=== PATIENT | female | born 1965 | race Caucasian/White ===

== ENCOUNTER 2022-10-16 | Outpatient (REF) | payer OTHER, SELFPAY ==
[2022-10-17 12:06] LABS: Influenza A PCR NEGATIVE (Negative); Influenza B PCR NEGATIVE (Negative); Resp Syncy Virus RNA Qual PCR NEGATIVE (Negative); SARS COV2 PCR INHOUSE NEGATIVE (Negative)
== END 2022-10-16 00:01 | disposition home or self-care (01) ==
LOC: HO.LNP
PROVIDERS: Visit Provider Nurse Practitioner Family
DX: Z20.822 Contact with and (suspected) exposure to COVID-19 (principal); R05.9 Cough, unspecified
CPT/HCPCS: 0241U

== ENCOUNTER 2022-10-17 11:22 | Outpatient (REF) | payer OTHER, SELFPAY | END 2022-10-17 11:23 | disposition home or self-care (01) | LOC: HO.LNP 11:22 | PROVIDERS: Visit Provider Nurse Practitioner Family | DX: Z13.89 Encounter for screening for other disorder (principal) ==

== ENCOUNTER 2023-03-29 14:33 | Outpatient (REF) | payer OTHER, SELFPAY ==
--- NOTE | ~2023-03-29 | CT_ITS ---
EXAMINATION: LUNG CANCER SCREENING CT CHEST WITHOUT CONTRAST CLINICAL INFORMATION: Current smoker with 40 pack year history COMPARISON: None TECHNIQUE: Multidetector volumetric CT imaging of the chest was obtained noncontrast using low dose screening CT technique. Axial thin section 0.625 mm reformations in soft tissue and lung windows were obtained. Sagittal and coronal reformations were obtained. Axial MIP images were also created and reviewed. This CT examination was performed using dose optimization techniques as appropriate, variously including the following: *Automated exposure control *Adjustment of mA and/or kV according to patient size (this includes techniques or standardized protocols for targeted exams where dose is matched to indication/reason for exam; i.e. extremities or head) *Use of iterative reconstruction technique TOTAL EXAM DLP: 36.27 mGy-cm FINDINGS: PULMONARY NODULES (see smith images): No suspicious pulmonary nodules. LUNGS / PLEURA: Minimal emphysema. Diffuse mild bronchial wall thickening without bronchiectasis. There are couple tiny focal pleural-parenchymal scars at the lateral right lung apex. No pleural effusion or pneumothorax. MEDIASTINUM / JABIER: Heart normal in size without pericardial effusion. Great vessels normal caliber. No lymphadenopathy. Coronary calcifications absent. Imaged thyroid gland unremarkable. CHEST WALL / AXILLA: Unremarkable. UPPER ABDOMEN: Included portions grossly unremarkable allowing for limitations in technique. OSSEOUS STRUCTURES: No acute or suspicious osseous abnormalities. Healed right lateral seventh and eighth rib fractures. Mild S-shaped thoracolumbar scoliosis. CT/CT lung screening IMPRESSION: * No evidence of pulmonary malignancy. * There are no pulmonary nodules that meet criteria for short interval follow-up at this time. ASSESSMENT: Lung RADS category: 1. Negative. No nodules or definitely benign nodules. Continue annual screening with low-dose CT in 12 months. Probability of malignancy less than 1%. RECOMMENDATION: Follow up low dose CT chest in 1 year.
== END 2023-03-29 14:34 | disposition home or self-care (01) ==
LOC: HO.CT 14:33
PROVIDERS: PCP Internal Medicine; Visit Provider Physician Assistant Medical
DX: Z12.2 Encounter for screening for malignant neoplasm of respiratory organs (principal); F17.210 Nicotine dependence, cigarettes, uncomplicated
CPT/HCPCS: 71271; G0296

== ENCOUNTER 2023-07-25 12:12 | Outpatient (AMB) | payer OTHER, SELFPAY ==
[2023-07-25 12:37] VITALS: BP 142/78; PULSE 84; O2SAT 96; BMI 19.7
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
== END 2023-07-25 15:36 | disposition home or self-care (01) ==
LOC: HO.HMGC 12:12
PROVIDERS: PCP Internal Medicine; Visit Provider Internal Medicine
DX: M51.36 Other intervertebral disc degeneration, lumbar region (principal); M79.604 Pain in right leg; F41.9 Anxiety disorder, unspecified; F32.A Depression, unspecified
CPT/HCPCS: 99214

== ENCOUNTER 2024-08-13 13:30 | Outpatient (AMB) | payer OTHER, SELFPAY ==
--- NOTE | 2024-08-13 13:33 | A.OFFPC_ITS ---
Vital Signs 08/13/24 13:34 Height 5 ft 6.5 in Weight 127 lb BMI 20.2 BP 118/76 Blood Pressure Location Rt brachial Position Sitting Pulse 93 Pulse Source Pulse Oximeter Pulse Oximetry (%) 97 Oxygen Delivery Method Room Air Intake Visit Reasons: Eczema Intake Note: Pt is here today for a sick visit. Pt c/o eczema. Allergies aripiprazole [Abilify] Allergy (Unknown, Verified 08/13/24 13:37) Unknown lamotrigine [Lamictal] Allergy (Unknown, Verified 08/13/24 13:37) Unknown levofloxacin [Levaquin] Allergy (Unknown, Verified 08/13/24 13:37) Unknown risperidone [Risperdal] Allergy (Unknown, Verified 08/13/24 13:37) Unknown Vicodin Allergy (Unknown, Uncoded 08/13/24 13:37) Unknown Medication List - Last Reconciled 08/13/24 by Melly Chan MD albuterol sulfate 90 mcg/actuation 2 puffs inhalation Q4-6H alprazolam 1 mg PO TID PRN cetirizine (Zyrtec) 10 mg PO DAILY clobetasol 0.05% 1 appl topical BID 2 weeks dextroamphetamine-amphetamine 10 mg 1 tab PO QAM disposable gloves (Nitrile Exam Gloves) 3 x a day gabapentin 400 mg PO BID miscellaneous medical supply 1 ea miscellaneous DAILY vortioxetine (Trintellix) 20 mg PO DAILY Tobacco use date assessed: 08/13/24 Dental Screening Dental Screen Date: 08/13/24 Did you have a dental visit in the last 12 months?: Yes Did you have a dental problem in the last 6 months where you did not have access to dental care?: No Was dental information given to patient?: Patient has dentist HPI Eczema HPI Details Patient presents complaining of of recurrent and worsening hydradenitis suppurativa in perineum. She had a 7 plastic surgeries done on the area in the past and would like to see plastic surgeon again. She is established with a psychiatrist and PTSD bipolar disorder is controlled on current medications. [facility] Medical History Nicotine dependence, cigarettes, uncomplicated Anxiety and depression Hyperlipemia COPD (chronic obstructive pulmonary disease) Surgical History History of ankle surgery Family History Father Hyperlipidemia Diabetes Bladder cancer CJD (Creutzfeldt-Mauro disease) Mental health disorder Mother Hypertension Mental health disorder Social History Housing: Apartment Patient Tobacco Use Status: Current everyday Tobacco user (5 months ago) Cigarette Packs Per Day: 0.5 Years Smoked: (onset 17yo, 1/2ppd x 40yrs, 20pyh) Packs Per Year: 0 e-Cigarette/Vaping Use: Never Used service: No Current occupational status: disabled Cognitive needs: No Hearing needs: No Vision needs: No Questionnaire PHQ-9 Over the last 2 weeks, how often have you been bothered by any of the following problems? 46803 - PHQ-9 Billing: Patient declined-do not bill Source: Developed by Drs. Quinton Mcdermott, Melinda Montano, Rosendo Huffman and colleagues, with an educational ml from [employer]. Thrive Questionnaire Date Thrive assessed: 08/13/24 What is your living situation today?: I choose not to answer this question Within the past 12 months, did the food you bought not last and you didn't have the money to get more?: I choose not to answer this question Within the past 12 months, did you worry whether your food would run out before you got money to buy more?: I choose not to answer this question Do you have trouble paying for medicines?: I choose not to answer this question Do you have trouble getting transportation to medical appointments?: I choose not to answer this question Do you have trouble paying your heating and electricity bill?: I choose not to answer this question Do you have trouble taking care of your child, family member or friend?: I choose not to answer this question Do you have trouble with day-to-day activities such as bathing, preparing meals, shopping, managing finances, etc.?: I choose not to answer this question Are you currently unemployed and looking for a job?: I choose not to answer this question Are you interested in more education?: I choose not to answer this question Currently or been in a relationship where the following occur: I choose not to answer THRIVE Score: 0 AUDIT C Alcohol Use Questionnaire (AUDIT-C) 1. How often do you have a drink containing alcohol?: Never 3. How often do you have six or more drinks on one occasion?: Never Total Score: 0 NEERU-7 AMB Questionnaire NEERU-7 Date NEERU - 7 assessed: 08/13/24 Source: Developed by Drs. Quinton Mcdermott, Melinda Montano, Rosendo Huffman and colleagues, with an educational ml from [employer]. NEERU-7 Assessment Billing NEERU-7 Assessment Tool: pt declined-do not bill Review of Systems Const All systems reviewed & are unremarkable except as noted in HPI and below Card Reports no additional complaints Resp Reports no additional complaints GI Reports no additional complaints Physical exam (Primary Care) Vital Signs: Last Vital Signs Pulse 93 08/13/24 13:34 BP 118/76 08/13/24 13:34 Pulse Ox 97 08/13/24 13:34 Oxygen Delivery Method Room Air 08/13/24 13:34 BMI result Body Mass Index 20.2 Tobacco/Smoking Status: Tobacco use Status Tobacco use date assessed 08/13/24 08/13/24 13:39 Patient Tobacco Use Status Current everyday Tobacco (5 08/13/24 13:39 months ago) e-Cigarette/Vaping Use Never Used 08/13/24 13:39 Thrive Assessment: Date of Thrive Assessment Date Thrive assessed 08/13/24 08/13/24 13:39 Currently or been in a relationship where the following occur: I choose not to answer Const General: no acute distress HENMT Ears: hearing grossly normal bilaterally Neck Neck: Yes supple Resp Effort & Inspection: normal respiratory effort Auscultation: clear to auscultation bilaterally Cardio Rhythm: regular rhythm Heart sounds: S1 normal heart sound present and S2 normal heart sound present Other: Extensive scarring and multiple erythematous nodules without drainage in perineal area Coding Level of Care Code Est Pt Level 4 (80484) Diagnoses Hidradenitis suppurativa L73.2 Hyperlipemia E78.5 Annual physical exam Z00.00 Nicotine dependence, cigarettes, uncomplicated F17.210 Anxiety and depression F41.9; F32.A Assessment & Plan Assessment & Plan (1) Hidradenitis suppurativa: Comment: perineum, s/p 7 plastic surgeries Code(s): L73.2 - Hidradenitis suppurativa Category: Medical Plan: Referred to plastic surgeon at [facility] (2) Hyperlipemia: Code(s): E78.5 - Hyperlipidemia, unspecified Category: Medical Plan: Low-cholesterol diet regular exercise discussed with the patient return for fasting blood work including lipid profile (3) Annual physical exam: Code(s): Z00.00 - Encounter for general adult medical examination without abnormal findings Category: Medical Plan: Patient will call to schedule an appointment for mammogram. She will be referred to director of individual giving for history of intermittent bleeding and family history of precancerous polyps in brother and mother. (4) Nicotine dependence, cigarettes, uncomplicated: Comment: (current smoker, onset 17yo, 1/2ppd x 40yrs, 20pyh) Code(s): F17.210 - Nicotine dependence, cigarettes, uncomplicated Category: Medical Plan: Tobacco quitting discussed with the patient. She is established with lung cancer screening program (5) Anxiety and depression: Comment: PTSD, Follow-up with Psychiatry and Counseling Code(s): F41.9 - Anxiety disorder, unspecified; F32.A - Depression, unspecified Category: Medical Plan: FOLLOW-UP WITH PSYCHIATRY Orders: Orders Comprehensive [place]. Panel Fast Today E78.5 - Hyperlipidemia, unspecified, Z00.00 - Encounter for general adult medical examination without abnormal findings TSH reflex Free T4 Today E78.5 - Hyperlipidemia, unspecified, Z00.00 - Encounter for general adult medical examination without abnormal findings Vitamin D 25-OH Total Today E78.5 - Hyperlipidemia, unspecified, Z00.00 - Encounter for general adult medical examination without abnormal findings Lipid Panel Today E78.5 - Hyperlipidemia, unspecified, Z00.00 - Encounter for general adult medical examination without abnormal findings Complete Blood Count Auto Diff Today E78.5 - Hyperlipidemia, unspecified, Z00.00 - Encounter for general adult medical examination without abnormal findings Referrals Plastic Surgery Referral L73.2 - Hidradenitis suppurativa Gastroenterology Referral K62.5 - Hemorrhage of anus and rectum, Z83.719 - Family history of colon polyps, unspecified Medications: New escitalopram oxalate (Lexapro) 20 mg PO DAILY 90 tabs 0RF
[2024-08-13 13:34] VITALS: BP 118/76; PULSE 93; O2SAT 97; BMI 20.2
== END 2024-08-13 14:07 | disposition home or self-care (01) ==
PROVIDERS: PCP Internal Medicine; Visit Provider Internal Medicine
DX: L73.2 Hidradenitis suppurativa (principal); E78.5 Hyperlipidemia, unspecified; Z00.00 Encounter for general adult medical examination without abnormal findings; F17.210 Nicotine dependence, cigarettes, uncomplicated; F41.9 Anxiety disorder, unspecified; F32.A Depression, unspecified

== ENCOUNTER → 2024-08-13 13:30 | Outpatient (BNVA) | payer OTHER, SELFPAY | PROVIDERS: PCP Internal Medicine; Visit Provider Internal Medicine | DX: Z00.00 Encounter for general adult medical examination without abnormal findings (principal); L73.2 Hidradenitis suppurativa; E78.5 Hyperlipidemia, unspecified; F41.9 Anxiety disorder, unspecified; F32.A Depression, unspecified; F17.210 Nicotine dependence, cigarettes, uncomplicated; Z71.6 Tobacco abuse counseling | CPT/HCPCS: 96127; 99212 ==

== ENCOUNTER 2024-12-01 13:20 | Outpatient (AMB) | payer OTHER, SELFPAY ==
--- NOTE | 2024-12-01 13:21 | A.OFFVIS_ITS ---
Vital Signs 12/01/24 13:27 Height 5 ft 6.5 in Weight 135 lb BMI 21.5 BP 135/71 Blood Pressure Location Rt brachial Position Sitting Pulse 76 Intake Visit Reasons: Abscess, Hidradenitis Intake Note: Patient referred by pcp Dr. Chan for Hidradenitis in groin area. Present for yrs. Patient c/o: groin, axilla. Reports 7 surgeries in the past @ [facility]. Oil Well Pumper Required: No Accompanied by: friend Lidya Allergies aripiprazole [Abilify] Allergy (Unknown, Verified 12/01/24 13:29) Unknown lamotrigine [Lamictal] Allergy (Unknown, Verified 12/01/24 13:29) Unknown levofloxacin [Levaquin] Allergy (Unknown, Verified 12/01/24 13:) Unknown risperidone [Risperdal] Allergy (Unknown, Verified 12/01/24 13:) Unknown Vicodin Allergy (Unknown, Uncoded 12/01/24 13:) Unknown HPI Comments Details: Patient presents with a friend to discuss her persistent/recurrent hidradenitis suppurativa of her peritoneum. Patient has had surgery by a plastic surgeon at [facility] a few years ago for this and has been told that should she require additional surgery for recurrence it would possibly need skin grafting to the affected areas. As noted above this has been a longstanding problem for the patient. She has no other hidradenitis suppurative elsewhere. Chart was reviewed and patient evaluated [facility] Medical History Nicotine dependence, cigarettes, uncomplicated Anxiety and depression Hyperlipemia COPD (chronic obstructive pulmonary disease) Surgical History History of ankle surgery Family History Father Hyperlipidemia Diabetes Bladder cancer CJD (Creutzfeldt-Mauro disease) Mental health disorder Mother Hypertension Mental health disorder Social History Housing: Apartment Patient Tobacco Use Status: Current everyday Tobacco user Cigarette Packs Per Day: 0.5 Years Smoked: (onset 17yo, 1/2ppd x 40yrs, 20pyh) e-Cigarette/Vaping Use: Never Used service: No Current occupational status: disabled Cognitive needs: No Hearing needs: No Vision needs: No Physical Exam Vital Signs: Last Vital Signs Pulse 76 12/01/24 13:27 BP 135/71 12/01/24 13:27 BMI result Body Mass Index 21.5 Other: Patient was several scars in her perineal area as well as very extensive profound hidradenitis suppurativa involving the peritoneum, perivulvar area, and suprapubic area. She has a few inflamed areas but nothing required incision and drainage. There is significant cicatrization and scarring from both the chronicity of her disease and her prior surgeries. Assessment & Plan Assessment & Plan (1) Vulval hidradenitis suppurativa: Code(s): L73.2 - Hidradenitis suppurativa Category: Surgical Plan Patient has a very extensive hidradenitis suppurativa of her peritoneum and periumbilical area beyond the scope of general surgery intervention. I recommend the patient be evaluated by Plastic surgery for this. She does not wished to go back to her [facility] plastic surgeon from years ago and we will see if we can arrange for consultation with the plastic surgeon in [place]. Patient agrees. Arrangements made for this. All questions answered. In the meantime, patient will be given antibiotics regarding her superficial areas of inflammation of her chronic hidradenitis suppurativa. Medications: New cephalexin 500 mg PO TID 30 caps 0RF Coding Level of Care Code New Pt Level 4 (56331) Diagnoses Vulval hidradenitis suppurativa L73.2
[2024-12-01 13:27] VITALS: BP 135/71; PULSE 76; BMI 21.5
--- OUTSIDE RECORDS SUMMARY | 2024-12-01 14:18 | XMS_ITS | Patient Health Record ---
Author Organization [facility] Address [address] [place] [address] Care Team Providers Care Laborer Tanbark Name Role Phone Melly Chan MD Primary Care Provider Quinton Klein [facility] [phone] REASON FOR REFERRAL No Information SOCIAL HISTORY Sex Assigned At : Social History Observation Description Sex Assigned At Unknown Encounters Encounter Location Date Provider Diagnosis [facility] [address] [place] [id number] 12/01/2024 Quinton Collado PLAN OF TREATMENT Next Appt Details Provider Name:Quinton Collado , 12/01/2024 02:20:00 PM, [address], [address], [place], [address], Insurance Providers Payer Name Payer Address Payer Phone Subscriber Number Group Number Insured Name Patient Relationship to Insured Coverage Start Date Coverage End Date [facility] [address] [place] [address] [id number] BASIL RICARDO Self - patient is the insured
--- OUTSIDE RECORDS SUMMARY | 2024-12-01 14:18 | XMS_ITS ---
Author Organization [facility] Address [address] [place] [address] Care Team Providers Care Security Officer Supervisor Name Role Phone Melly Chan MD Primary Care Provider Quinton Klein Unavailable [phone] REASON FOR VISIT hemorrhage of anus and rectum, colon screening Encounters Encounter Location Date Provider Diagnosis [facility] [address] [place] [address] 12/01/2024 Quinton Collado PLAN OF TREATMENT Next Appt Details Provider Name:Quinton Collado , 12/01/2024 02:20:00 PM, [address], [address], [place], [address],
== END 2024-12-01 13:45 | disposition home or self-care (01) ==
PROVIDERS: PCP Internal Medicine; Referring Provider Internal Medicine; Visit Provider Surgery
DX: L73.2 Hidradenitis suppurativa (principal)
CPT/HCPCS: 99204

== ENCOUNTER → 2024-12-01 13:20 | Outpatient (BNVA) | payer OTHER, SELFPAY | PROVIDERS: PCP Internal Medicine; Referring Provider Internal Medicine; Visit Provider Surgery | DX: L73.2 Hidradenitis suppurativa (principal) | CPT/HCPCS: 99202 ==